=== PATIENT | male | born 1975 | race Caucasian/White ===

== ENCOUNTER → 2017-04-14 | Outpatient (CLI) | payer OTHER ==
[~2017-04-14] MED LIST: AFRIN; B-COTAB18 PO; CHOL200010 PO; CHRO1TAB7; GARL400T5 PO; IBUP-1050 PO; MAGN1CAP2 PO; MULT-506 PO; NAPR1TAB9 PO; OMEG10007 PO; OXYC-57 PO; PSDUNK
[2017-04-14 13:38] LABS: BASO % 0.6 %; BASO ABS # 0.02 K/uL (0-0.2); COMPLETE YES; EOS % 2.2 %; HEMATOCRIT 41.5 % (42-52); IG% 0.3 %; LYMPH % 44.3 %; LYMPH ABS # 1.43 K/uL (1.2-3.4); MEAN CELL VOLUME 85.7 fL (80-100); MEAN CORPUSCULAR HEMOGLOBIN 30.8 pg (25-34); MEAN CORPUSCULAR HGB CONC 35.9 g/dl (32-36); MEAN PLATELET VOLUME 9.9 fL (7.4-10.4); MONO % 10.5 %; NEUT % 42.1 %; PLATELET COUNT 186 K/uL (130-400); RED BLOOD COUNT 4.84 M/uL (4.7-6.1); WHITE BLOOD COUNT 3.23 K/uL (4.8-10.8)
[2017-04-14 14:03] LABS: BLOOD UREA NITROGEN 14 mg/dl (7-18); CALCIUM 8.5 mg/dl (8.5-10.1); CARBON DIOXIDE 27 mmol/L (21-32); CHLORIDE 103 mmol/L (98-107); GLUCOSE 305 mg/dl (70-99); POTASSIUM 4.3 mmol/L (3.5-5.1); SODIUM 137 mmol/L (136-145)
[2017-04-14 14:12] LABS: BETA-HYDROXYBUTYRATE 2.17 mg/dL (0.2-2.81)
== END | disposition home or self-care (01) ==
LOC: C.LABBC 10:55
PROVIDERS: ATTEND Orthopaedic Surgery
DX: Z01.812 Encounter for preprocedural laboratory examination (principal); S46.211A Strain of muscle, fascia and tendon of other parts of biceps, right arm, initial encounter; X58.XXXA Exposure to other specified factors, initial encounter

== ENCOUNTER → 2017-05-08 | Day surgery (SDC) | payer OTHER, BC ==
[2017-04-15 13:21] VITALS: Ht 182.9 cm; Wt 127.7 kg
[~2017-05-08] VITALS: Ht 182.9 cm; Wt 127.7 kg
[~2017-05-08] MED LIST changes: +ACETAMINOPHEN 1000 MG/100 ML IV IV ONE; +ATROPINE SULFATE 0.1 MG/ML 5ML SYR IV PRN; +BUPIVACAINE/EPINEPHRINE 0.25% 10 ML VIAL ONE; +CEFAZOLIN 1000MG/55 ML D5W IV SCH; +CEFAZOLIN 3000 MG/65 ML D5W IV SCH; +DEXAMETHASONE SOD INJ 4 MG/ML VIAL ONE; +EpHEDrine SULFATE INJ 50 MG/ML AMP IV PRN; +FENTANYL CITRATE INJ 50 MCG/1 ML 2 ML VIAL IV PRN; +FENTANYL CITRATE INJ 50 MCG/1 ML 2 ML VIAL ONE; +HYDROmorphone INJ 1 MG/ML SYR IV PRN; +LACTATED RINGER'S 1000ML 1,000 ML IV SCH; +LIDOCAINE HCL 2% 2 ML VIAL (20MG/ML) ONE; +MIDAZOLAM HCL 1 MG/ML 2ML VIAL ONE; +ONDANSETRON INJ 2 MG/ML 2 ML VIAL IV PRN; +ONDANSETRON INJ 2 MG/ML 2 ML VIAL ONE; +OXYCODONE/ACETAMINOPHEN 5-325 TAB PO PRN; +PROMETHAZINE HCL INJ 12.5 MG in SODIUM CHLORIDE 0.9% 50ML 50 ML IV PRN; +PROMETHAZINE HCL INJ 25 MG/ML 1 ML VIAL ONE; +PROPOFOL IV EMULSION 10 MG/ML 20 ML VIAL IV ONE; -PSDUNK; +SODIUM CHLORIDE 0.9% 1000ML 1,000 ML IV SCH
--- NOTE | 2017-05-08 07:00 | History & Physical Bridge - [place] ---
H&P Re-Evaluation Bridge Note: I have examined the patient, reviewed the History & Physical and in the interval since the performance of the History & Physical I have noted the following changes of clinical significance: No changes noted
--- NOTE | 2017-05-08 08:04 | Discharge Instructions-SurgCtr ---
Discharge Instructions Date of Service May 08, 2017. Visit Reason for Visit: Right Distal Biceps Tendon Repair Discharge Discharge Diagnosis / Problem: SAME ABOVE Discharge Goals Goal(s): Decrease discomfort, Improve function Activity Recommendations Activity Limitations: as noted below Lifting Limitations: until after follow-up appointment Exercise/Sports Limitations: until after follow-up appointment Anesthesia . Post Anesthesia Instructions: If you have had General Anesthesia or IV Sedation: * Do not drive today. * Resume driving when surgeon permits. * Do not make important decisions or sign legal documents today. * Call surgeon for: 1. Temperature elevations greater than 101 degrees F. 2. Uncontrollable pain. 3. Excessive bleeding. 4. Persistent nausea and vomiting. 5. Medication intolerance (nausea, vomiting or rash). * For nausea and vomiting use only clear liquids such as: tea, soda, bouillon until nausea subsides, then gradually increase diet as tolerated. * If you have any concerns or questions, call your surgeon's office. If physician is unavailable and it is an emergency, call 911 or go to the nearest emergency room. . Instructions / Follow-Up Instructions / Follow-Up MEDICATIONS: * Resume previous medications unless instructed otherwise by your surgeon. * Always take pain medication on a full stomach or with food to avoid upset stomach. * Do not drink alcohol or drive while taking narcotics. * Ibuprofen or Tylenol may be taken if narcotic not needed. SPECIAL CARE INSTRUCTIONS: __ None _X_ Keep extremity elevated and iced x 48 hours; apply ice 20-30 minutes 8-10 times/day. May remove at night. _X_ Sling (MAY REMOVE TO SHOWER AND FOR THERAPY) _X_24 hrs/day __ Remove at night __ Shoulder Immobilizer __ 24 hrs/day __ Remove at night _X_ Dressing __ Maintain until seen in office, may shower with plastic over site _X_ Remove dressings in 5 DAYS. MAY SHOWER SOONER IF COVERED WITH PLASTIC BAG. _X_ Cover incisions with band-aids after showering __ Do not remove steri-strips Call physician if chills or temperature rises above 102 degrees or pain unrelieved by prescribed pain medications at . . Diet Recommendations Home Diet: no limitations Fluid Restriction: None Procedures Procedures Performed: Same Pending Studies Studies pending at discharge: no Work Instructions Return To Work: after follow-up Lifting Limitations: NO LIFTING WITH RIGHT ARM Medical Emergencies . Who to Call and When: Medical Emergencies: If at any time you feel your situation is an emergency, please call 911 immediately. . Non-Emergent Contact Non-Emergency issues call your: Primary Care Provider Call Non-Emergent contact if: you have a fever, temperature is above 101.5 . . "Provider Documentation" section prepared by Oseas Scott. .
--- NOTE | 2017-05-08 08:17 | OPERATIVE REPORT ---
DATE OF OPERATION: 05/08/2017 PREOPERATIVE DIAGNOSIS: Right distal biceps tendon rupture. POSTOPERATIVE DIAGNOSIS: Same. PROCEDURE: Open right distal biceps tenodesis. SURGEON: Dr. Fredy Abreu. INSTRUCTIONAL SYSTEMS DESIGN CONSULTANT: Cole Scott PA-C, whose assistance was necessary for retraction and positioning the arm. ANESTHESIA: General. COMPLICATIONS: None. CONDITION: Stable to PACU. INDICATIONS: César is a pleasant 41-year-old male who injured his right shoulder while at work. He went to climb out of a piece of equipment, lost his footing, reached up with his right arm to catch himself and felt a pop in his right elbow. MRI showed a distal biceps tendon rupture and he elected to undergo operative repair. OPERATION AND FINDINGS: On 05/08/2017, he arrived at [facility] for the above procedure. He was seen in the preoperative holding area and the operative extremity was identified and signed. He was preoperative antibiotic, taken back to the operating room, laid on the table in supine position and put under general anesthesia. The right elbow was then prepped and draped in sterile fashion. Time-out was done and the patient and operative extremity was properly identified. A Jadiel incision was made directly between the mobile wad and the flexor pronator mass. Dissection was taken down through the fascia with care not to disrupt the cutaneous nerve. The radial tuberosity was exposed. The biceps tendon was absent. Digital dissection was used proximally to pull the distal biceps tendon out of the wound. The tendon was then whipstitched with an Arthrex FiberLoop suture. The tendon was trimmed and measured to be a size 7. An Arthrex biceps button was placed on the tails of the suture. The radial tuberosity was then exposed. A 7.5 mm hole was drilled and the biceps button was passed through the posterior cortex and flipped and a tension slide technique was used to deliver the biceps tendon into the 7.5 mm hole. This gave good fixation. An Arthrex 7 x 10 mm biointerference screw was then used. The tails of the suture were then tied. I was able to get the elbow out to full extension. The wound was then irrigated and surrounding soft tissues were injected with 20 mL of 0.25% Marcaine with epinephrine. The tourniquet was deflated. Hemostasis was easily controlled. Skin was closed with 3-0 Vicryl and 3-0 mattress nylon suture. He was then placed in a soft dressing and regular arm sling. He was then extubated, transferred to a litter and taken to the postanesthesia care unit in stable condition. He tolerated the procedure well. I attest to the content of the Intraoperative Record and any orders documented therein. Any exceptions are noted below. NAEL
--- NOTE | 2017-05-08 08:20 | [facility] Post Operative Brief Note ---
Immediate Operative Summary Operative Date May 08, 2017. Pre-Operative Diagnosis Right Biceps Tendon Rupture Post-Operative Diagnosis Same Procedure(s) Performed Same Surgeon Dr. Adrian Abreu Chemist Internship Surgeon(s) Angelina Scott PA-C Estimated Blood Loss 5 CC Findings as above Specimens Same Complication(s) None Disposition Recovery Room / PACU
[2017-05-08 09:34] VITALS: BP 132/89; PULSE 71; TEMP 36.2; O2SAT 97
--- NOTE | 2017-05-08 09:36 | Anesthesia Progress Nt - [facility] ---
Anesthesia Post Op Note Date & Time May 08, 2017 at 09:35 Vital Signs Pain Intensity: 6.0 Vital Signs Past 12 Hours Date Time Temp Pulse Resp B/P (MAP) Pulse Ox O2 Delivery O2 Flow Rate FiO2 05/08/17 08:59 36.2 80 16 143/90 (107) 96 Room Air 05/08/17 08:42 86 17 05/08/17 08:42 88 17 95 05/08/17 08:41 84 26 94 05/08/17 08:41 84 26 05/08/17 08:40 133/82 05/08/17 08:39 36.1 96 Room Air 05/08/17 08:36 78 10 05/08/17 08:36 78 10 96 05/08/17 08:35 132/83 05/08/17 08:31 83 19 05/08/17 08:31 83 19 92 05/08/17 08:30 129/88 05/08/17 08:29 86 18 05/08/17 08:29 87 18 95 05/08/17 08:25 147/93 05/08/17 08:24 86 14 99 05/08/17 08:24 88 14 05/08/17 08:20 134/91 05/08/17 08:19 78 8 100 05/08/17 08:19 78 8 05/08/17 08:15 140/91 05/08/17 08:14 80 9 100 05/08/17 08:14 80 9 05/08/17 08:10 138/87 05/08/17 08:09 87 14 96 05/08/17 08:09 87 14 05/08/17 08:05 135/96 05/08/17 08:04 90 05/08/17 08:04 36.9 91 16 150/99 94 Mask 6 05/08/17 08:04 88 150/99 93 05/08/17 06:32 36.8 96 22 125/78 (94) 96 Room Air Notes Mental Status: alert / awake / arousable, participated in evaluation Pt Amnestic to Procedure: Yes Nausea / Vomiting: adequately controlled Pain: adequately controlled Airway Patency, RR, SpO2: stable & adequate BP & HR: stable & adequate Hydration State: stable & adequate Anesthetic Complications: no major complications apparent Doing well. Nausea better controlled after phenergan. VSS
== END | disposition home or self-care (01) ==
LOC: X.SURG 06:08
PROVIDERS: ATTEND Orthopaedic Surgery
DX: S46.191A Other injury of muscle, fascia and tendon of long head of biceps, right arm, initial encounter (principal); X50.9XXA Other and unspecified overexertion or strenuous movements or postures, initial encounter; Y99.0 Civilian activity done for income or pay